=== PATIENT | male | born 1945 | race Caucasian/White ===

== ENCOUNTER 2017-05-02 16:58 | Outpatient (CLI) | payer MEDICARE, OTHER ==
--- NOTE | 2017-05-02 23:55 | XRAY Report ---
EXAM: CHEST RADIOGRAPHY EXAM DATE: 05/02/2017 05:23 PM. CLINICAL HISTORY: Cough, suspected bronchitis. COMPARISON: 12/18/2015, CT 12/19/2015. TECHNIQUE: 2 views. FINDINGS: Lungs/Pleura: No focal opacities evident. No pleural effusion. No pneumothorax. Normal volumes. Mediastinum: Heart and mediastinal contours are unremarkable. Other: None. IMPRESSION: Stable negative 2-view chest radiography. [facility] Referring Provider Line: [phone] SITE ID: [id number]
== END 2017-05-02 16:59 | disposition home or self-care (01) ==
LOC: DI 16:58
PROVIDERS: ATTEND Internal Medicine
DX: J20.9 Acute bronchitis, unspecified (principal)
CPT/HCPCS: 71046

== ENCOUNTER 2022-04-05 01:00 | Emergency (ER) | payer MEDICARE, OTHER ==
[2022-04-05 01:07] VITALS: BP 168/82
--- NOTE | 2022-04-05 01:37 | XRAY Report ---
PROCEDURE: Chest 2 View X-Ray INDICATIONS: cough X several days TECHNIQUE: 2 views of the chest were acquired. COMPARISON: 05/02/2017 FINDINGS: Surgical changes and devices: None. Lungs and pleura: No pleural effusions or pneumothorax. Lungs are clear. Mediastinum: Mediastinal contours are normal. Heart size is normal. Bones and chest wall: No suspicious bony abnormalities. Soft tissues appear unremarkable. IMPRESSION: 1. No acute cardiopulmonary disease. Reviewed by: Abdirahman Field MD on 04/05/2022 1:36 AM [facility] Approved by: Abdirahman Field MD on 04/05/2022 1:36 AM [facility] Station ID: [id number]
--- NOTE | 2022-04-05 01:55 | ED Physician Documentation ---
History of Present Illness - Stated complaint Stated Complaint: COUGH, CONGESTION - Chief complaint Chief Complaint: Resp - History obtained from History obtained from: Patient - Additonal information Additional information: 76-year-old man with past medical history of high blood pressure on lisinopril presents with cough and congestion a couple weeks ago that returned over the past 3 to 4 days. Productive of clear sputum. Cough keeps him awake at nighttime. Denies chest pain, shortness of breath, hemoptysis, leg swelling, pleurisy. Review of Systems Constitutional: denies: Fever Nose: reports: Congestion Cardiac: denies: Chest pain / pressure Respiratory: reports: Cough. denies: Dyspnea PD PAST MEDICAL HISTORY - Past Medical History Past Medical History: Yes Cardiovascular: Hypertension Endocrine/Autoimmune: None Psych: Anxiety - Past Surgical History Past Surgical History: Yes Ortho: Other - Present Medications Home Medications: Ambulatory Orders Medication Instructions Recorded Confirmed Aspirin Chewable [St Trae 81 mg PO DAILY 09/13/15 04/05/22 Aspirin] lisinopriL [Lisinopril] 10 mg PO DAILY 09/13/15 04/05/22 Dutasteride [Avodart] 0.5 mg PO DAILY 12/18/15 04/05/22 Tadalafil [Cialis] 20 mg PO ONCE PRN 12/18/15 04/05/22 - Allergies Allergies/Adverse Reactions: Allergies Allergy/AdvReac Type Severity Reaction Status Date / Time No Known Drug Allergies Allergy Verified 04/05/22 01:06 - Social History Does the pt smoke?: No Smoking Status: Never smoker Does the pt drink ETOH?: Yes ETOH Use: Liquor Does the pt have substance abuse?: No - Immunizations Immunizations are current?: No Immunizations: TDAP >10years/unknown - POLST Patient has POLST: No PD ED PE NORMAL - Vitals Vital signs reviewed: Yes - General General: Alert and oriented X 3, No acute distress, Well developed/nourished - HEENT HEENT: Atraumatic, PERRL, EOMI, Moist mucous membranes, Pharynx benign - Neck Neck: Supple, no meningeal sign - Cardiac Cardiac: RRR - Respiratory Respiratory: No respiratory distress, Clear bilaterally Results - Vitals Vitals: Vital Signs - 24 hr 04/05/22 01:04 Temperature 36.7 C Heart Rate 71 Respiratory 18 Rate Blood Pressure 168/82 H O2 Saturation 97 Oxygen O2 Source Room air PD Medical Decision Making - ED course ED course: 76-year-old man presents with viral upper respiratory infection. Chest x-ray ordered and noncontributory. Symptomatic care discussed. Return precautions given. Plan to follow-up with primary care provider. Departure - Departure Disposition: 01 Home, Self Care Clinical Impression: Viral URI with cough Condition: Good Instructions: ED Viral Syndrome Comments: You were seen in the emergency department for a viral respiratory infection.A nasal swab was sent which will result in a couple hours. You can review the results on your with the patient health portal or he can call for the results. Please return to the emergency department if you have new or worsening symptoms or other concerns. Follow-up with your primary care provider. [id number] treatments: - guaifenesin (expectorant to loosen and cough up mucus) 200 to 400 mg every 4 hours as needed with a maximum daily dose of 2 g. - Dextromethorphan (cough suppressant) 20 to 30 mg every 6-8 hours as needed - humidifier Discharge Date/Time: 04/05/22 01:59
[2022-04-05 02:28] LABS: CORONAVIRUS 229E-RESP PCR NOT DETECTED; CORONAVIRUS HKU1-RESP PCR NOT DETECTED; CORONAVIRUS NL63-RESP PCR NOT DETECTED; CORONAVIRUS OC43-RESP PCR NOT DETECTED; HUMAN METAPNEUMOVIRUS NOT DETECTED; SARS-CoV-2 -RESP PCR PANEL NOT DETECTED
[2022-04-05 02:29] LABS: B. PARAPERTUSSIS- RESP PCR PAN NOT DETECTED; B. PERTUSSIS- RESP PCR PANEL NOT DETECTED; C. PNEUMONIAE- RESP PCR PANEL NOT DETECTED; INFLUENZA A- RESP PCR PANEL NOT DETECTED; INFLUENZA B - RESP PCR PANEL NOT DETECTED; M. PNEUMONIAE- RESP PCR PANEL NOT DETECTED; PARAINFLUENZA VIRUS 1 NOT DETECTED; PARAINFLUENZA VIRUS 2 NOT DETECTED; PARAINFLUENZA VIRUS 3 NOT DETECTED; PARAINFLUENZA VIRUS 4 NOT DETECTED; RHINOVIRUS/ENTEROVIRUS DETECTED; RSV- RESP PCR PANEL NOT DETECTED
== END 2022-04-05 01:59 | disposition home or self-care (01) ==
LOC: ED 01:00
DX: J06.9 Acute upper respiratory infection, unspecified (principal); I10 Essential (primary) hypertension; Z20.822 Contact with and (suspected) exposure to COVID-19
CPT/HCPCS: 87633; 99283; 99284

== ENCOUNTER 2023-11-09 06:56 | Emergency (ER) | payer MEDICARE, OTHER ==
--- NOTE | 2023-11-09 07:26 | ED Physician Documentation ---
PD HPI URI - Stated complaint Stated Complaint: COUGH,LT SIDE LIP SWELLING - Chief complaint Chief Complaint: Allergic Rx - History obtained from History obtained from: Patient - History of Present Illness Timing - onset: How many weeks ago (1-2) Timing duration: Weeks (1-2) Timing details: Still present Associated symptoms: Productive cough, Dyspnea. No: Fever Recently seen: Clinic (seen by PCP and Rx with antibiotic for cough. Not much improved.) PD PAST MEDICAL HISTORY - Past Medical History Past Medical History: Yes Cardiovascular: Hypertension Endocrine/Autoimmune: None Psych: Anxiety - Past Surgical History Past Surgical History: Yes Ortho: Other - Present Medications Home Medications: Ambulatory Orders Medication Instructions Recorded Confirmed lisinopriL [Lisinopril] 10 mg PO DAILY 09/13/15 11/09/23 Dutasteride [Avodart] 0.5 mg PO DAILY 12/18/15 11/09/23 Tadalafil [Cialis] 20 mg PO ONCE PRN 12/18/15 11/09/23 Albuterol Sulf [Ventolin Hfa 2 - 3 puffs INH QID 10 Days #1 each 11/09/23 Inhaler] Doxycycline Hyclate 100 mg PO BID 7 Days #14 cap 11/09/23 dexAMETHasone [Decadron] 4 mg PO DAILY #7 tablet 11/09/23 - Allergies Allergies/Adverse Reactions: Allergies Allergy/AdvReac Type Severity Reaction Status Date / Time No Known Drug Allergies Allergy Verified 11/09/23 07:08 - Social History Does the pt smoke?: No Smoking Status: Never smoker Does the pt drink ETOH?: Yes Does the pt have substance abuse?: No - Immunizations Immunizations are current?: No Immunizations: TDAP >10years/unknown - POLST Patient has POLST: No PD ED PE NORMAL - Vitals Vital signs reviewed: Yes - General General: Alert and oriented X 3, No acute distress, Well developed/nourished - Neck Neck: Supple, no meningeal sign, No adenopathy - Cardiac Cardiac: RRR, No murmur - Respiratory Respiratory: No respiratory distress. No: Clear bilaterally (exp wheezing noted. No coarse sounds.) - Derm Derm: Normal color, Warm and dry - Extremities Extremities: No edema, No calf tenderness / cord Results - Vitals Vitals: Oxygen O2 Source Room air PD Medical Decision Making - ED course Complexity details: considered differential (The patient has had productive cough for couple of weeks. Initially ill while on a trip in [place]. Started cephalexin antibiotic 1 week ago with mild improvement only. Wheezing cough without fevers. Today noted swelling of the left upper lip and inside cheek.), d/w patient ED course: He does have persisting productive cough. Now with some angioedema around the mouth but no hives. Given productivity and general malaise, it does sound like an infectious cause for his cough. He does have wheezing on exam and triggered cough with breathing deeply. His oxygenation is good. He does not have any focal coarse sounds. Shared decision to not need a chest x-ray. However we would initiate some steroids for the swelling of the lip as well as persisting wheezing and also an inhaler. Odds are good this is probably more of a viral illness but he has been on antibiotics without much improvement. We can swap to another, particularly and lieu of the swelling around the lips. Consideration would be an allergic reaction to the antibiotic versus some other cause or more concerning would be a immune mediated response to his lisinopril. Will have him hold his lisinopril as well. Departure - Departure Disposition: Home, Self Care Clinical Impression: Bronchitis, Wheezing, Angioedema Condition: Stable Record reviewed to determine appropriate education?: Yes Instructions: ED Angioedema, ED Wheezing Follow-Up: Richar Cabello MD [Primary Care Provider] - Prescriptions: dexAMETHasone [Decadron] 4 mg PO DAILY #7 tablet Doxycycline Hyclate 100 mg PO BID 7 Days #14 cap Albuterol Sulf [Ventolin Hfa Inhaler] 2 - 3 puffs INH QID 10 Days #1 each Comments: The swelling of your lip would seem likely an allergic reaction. Since you are on the cephalexin for the past week, that would be the most obvious and since you are not getting tremendous improvement on the antibiotic, for both reasons it would make sense to switch to a different 1. I wrote a prescription for doxycycline. Stop the cephalexin. Alternative concern is at times with illness your immune system can precipitate an allergic reaction to lisinopril which typically would translate as the swelling around the lips (angioedema) like you are having, compared to antibiotic allergic reactions commonly also causing hives as well. For that reason I would have you stop the lisinopril over the next month. You do have a lot of wheezing and we can help that with an inhaler 4 times daily over the next week or so as well as a steroid anti-inflammatory. The steroid would also be useful to ameliorate the symptoms of the allergic reaction. I sent your prescriptions to your preferred pharmacy, [facility]. Recheck if not improving well over the next few days. Return if the swelling of your lip translates into deeper swelling such as tongue throat or palate. Forms: PCP List Discharge Date/Time: 11/09/23 08:34
[2023-11-09] MEDS: dexAMETHasone 4 MG TABLET PO STA (08:01)
[2023-11-09] MEDS: ALBUTEROL 1 PUFF INH STA (08:26)
[2023-11-09 08:43] VITALS: BP 136/82; O2SAT 100
== END 2023-11-09 08:34 | disposition home or self-care (01) ==
LOC: ED 06:56
DX: J40 Bronchitis, not specified as acute or chronic (principal); T78.3XXA Angioneurotic edema, initial encounter; I10 Essential (primary) hypertension
CPT/HCPCS: 94640; 99283; J8540